=== PATIENT | male | born 1955 | race Caucasian/White ===

== ENCOUNTER 2016-07-29 10:02 | Emergency (ER) | payer BC, OTHER ==
[2016-07-29] MEDS ORDERED: KETOROLAC TROMETHAMINE 60 MG/2 ML VIAL IM ONE ×2 (10:24→10:37)
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
--- OUTSIDE RECORDS SUMMARY | 2016-07-29 10:40 | XMS REPORT | Continuity of Care Document ---
:1955 Author Organization [facility] [place] [address] Care Team Providers Name Role Phone Provider, None Per Patient Primary Care Provider Unavailable Source Comments This disclosure is being made pursuant to the [employer] program and maynot contain all information available regarding this patient.[facility] Active Allergies and Adverse Reactions Not on File Current Medications Be aware that medications may not be up to date as of this document. Alwaysverify current medications with the patient. Not on file Active Problems Not on file Social History Tobacco Use Types Packs/Day Years Used Date Never Assessed Plan of Care Health Maintenance Due Date Last Done Comments Tetanus/Pertussis (1 - Tdap) 02/26/1975 Colonoscopy 02/26/2006 Well Adult Visit 02/26/2006 Influenza Immunization (#1) 2015 Results from Last 3 Months Not on file
--- OUTSIDE RECORDS SUMMARY | 2016-07-29 10:40 | XMS REPORT | Continuity of Care Document ---
:1955 Author Organization [facility] ([facility]) Address [address] [place] [address] Phone [phone] Care Team Providers Name Role Phone Provider, No-Primary Care Primary Care Provider Unavailable Source Comments This disclosure is being made pursuant to the Care Everywhere program, applicable federal and state laws, and may not contain all informaitonavailable regarding this patient.[facility] ([facility]) Active Allergies and Adverse Reactions Not on File Current Medications Not on file Active Problems Not on file Social History Tobacco Use Types Packs/Day Years Used Date Never Assessed Plan of Care Health Maintenance Due Date Last Done Comments HCV Screening 1955 Hepatitis B Vaccine (1 of 3 - Primary Series) 1955 Tdap Vaccine 02/26/1967 Lipid Disorder Screening 02/26/1974 MMR Vaccine 02/26/1974 Td Vaccine 02/26/1974 Colonoscopy 02/26/2006 Prostate Cancer Screening 02/26/2006 Influenza Vaccine: Seasonal (#1) 11/21/2015 Zoster Vaccine 2016 Results from Last 3 Months Not on file
[2016-07-29] MEDS ORDERED: HYDROmorphone HCL 1 MG/ML DISP.SYRIN IM ONE (10:54)
[2016-07-29] MEDS ORDERED: HYDROmorphone HCL 1 MG/ML DISP.SYRIN ONE (10:57)
[2016-07-29 11:23] VITALS: BP 152/82
== END 2016-07-29 11:22 | disposition home or self-care (01) ==
LOC: ER 10:02
DX: S46.811A Strain of other muscles, fascia and tendons at shoulder and upper arm level, right arm, initial encounter (principal); V86.59XA Driver of other special all-terrain or other off-road motor vehicle injured in nontraffic accident, initial encounter; Y92.007 Garden or yard of unspecified non-institutional (private) residence as the place of occurrence of the external cause; Y99.8 Other external cause status

== ENCOUNTER 2020-03-02 13:03 | Inpatient (IN) ==
[2020-03-02 13:47] LABS: Hematocrit 45.2 % (42.0-52.0); Hemoglobin 15.3 gm/dL (13.5-18.0); Mean Cell Volume 88.5 fl (78-100); Mean Corpuscular Hemoglobin 29.9 pg (27-31); Mean Corpuscular Hgb Conc 33.8 g/dl (32-36); Mean Platelet Volume 9.9 fl (8-11.3); Neutrophil # 3.9 K/mm3 (1.3-6.0); Neutrophil % 68.8 % (42-75.0); Platelet Count 207 K/mm3 (150-450); Red Blood Count 5.11 M/mm3 (4.7-6.0); White Blood Count 5.7 K/mm3 (4.0-10.5)
[2020-03-02] MEDS ORDERED: DEXAMETHASONE SODIUM PHOSP/PF 10 MG/ML VIAL IV ONE (13:56)
[2020-03-02] MEDS ORDERED: NORMAL SALINE 1,000 ML IV ONE (13:56)
[2020-03-02 14:09] LABS: Albumin * 3.5 gm/dl (3.4-5.0); Anion Gap 13.8 mmol/L (6.8-13.8); BUN/Creatinine Ratio 13.3 (9.0-21.6); Bilirubin, Total 0.4 mg/dL (0.0-1.1); Ca. Corrected For Albumin 8.9 mg/dL (8.4-10.2); Calcium * 8.8 mg/dL (7.9-10.9); Carbon Dioxide 25.4 mmol/L (24-32.6); Potassium 4.2 mmol/L (3.4-4.6); Total Protein 7.7 gm/dL (6.2-8.2)
--- NOTE | 2020-03-02 15:10 | ERNOTE ---
Date of Service: 03/02/20 Time Seen by Provider: 03/02/20 13:45 Stated Complaint: covid positive sob Presenting Symptoms:: cough, other - SOB Source: patient Exam Limitations: no limitations Immunizations: IMMUNIZATION HX Immunizations Up to Date Yes History of Influenza Vaccine No Hx Pneumococcal Vaccination No Allergies/Adverse Reactions: Allergies bee venom protein (honey bee) Allergy (Verified 03/02/20 13:47) Swelling (Other) Home Medications: HOME MEDICATIONS Dm/P-Ephed/Acetaminoph/Doxylam [Jeni-[place] Plus Cold+Flu Pkt] 1 ea PO BID 03/02/20 [Last Taken 03/02/20 05:30] - History of Present Ilness Narrative: Patient presents to the ED for SOB. He became ill last Saturday. Was tested for COVID on Saturday which was positive. She has been having some pain between his shoulder blades. Feeling SOB that has been increasing. No CP. Fatigued. Here sats noted as low as 85% RA. He denies sleep apnea. Timing: constant, getting worse Severity: severe Frequency/Possible Cause: Reports: other - COVID 19 Modifying Factors - Improves: Reports: rest Modifying Factors - Worsens: Reports: activity Associated Symptoms: Reports: cough, shortness of breath. Denies: chest pain/soreness Prior Treatment: Denies: recently seen Review of Systems - Review of Systems Constitutional: Present: fatigue, malaise EYE: Present: no symptoms reported ENT: Absent: sore throat Respiratory: Present: shortness of breath Cardiology: Absent: chest pain Gastrointestinal/Abdominal: Absent: abdominal pain Genitourinary: Absent: dysuria Neurological: Absent: weakness All Other Systems: All systems neg except as marked Medical History (Last Reviewed 03/02/20 @ 15:08 by Francisco Matias MD) Gout (Acute) Anxiety Onset Date: Unknown Back pain Onset Date: ~07/1999 Carpal tunnel syndrome of right wrist Onset Date: ~04/2001 Foot pain, left Onset Date: ~05/2015 Impaired fasting glucose Onset Date: Unknown Obesity Onset Date: Unknown Tear of meniscus of left knee Onset Date: ~01/1999 Surgical History: Surgical History (Last Reviewed 03/02/20 @ 15:08 by Francisco Maitas MD) H/O colonoscopy Onset Date: ~04/2009 H/O knee surgery H/O nasal polypectomy Onset Date: ~03/2000 History of appendectomy History of carpal tunnel release Onset Date: ~1981 History of cholecystectomy Onset Date: ~04/2002 Previous back surgery Family History: Family History (Last Reviewed 03/02/20 @ 15:08 by Francisco Matias MD) Grandfather Hypertension paternal grandfather Diabetes paternal grandfather Father Diabetes Mother , colon cancer, adenocarcinoma at 54 years of age Cancer Social History: (Last Reviewed 03/02/20 @ 15:08 by Francisco Matias MD) Social History: adopted: No assisted: No Marital status: Marital status comment: engaged household members: significant other current occupational status: employed 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 Highest education level completed: high school graduate Service: No Tobacco: Smoking Status: Former smoker Alcohol: alcohol intake: current alcohol intake frequency: holiday/special occasion Substance Use: substance use type: does not use Dietary Habits: caffeine: Yes Type: carbonated beverages Physical Exam - Physical Exam General Appearance: Present: alert, no apparent distress Head Exam: Present: normal inspection, no evidence of injury Eye Exam: Normal inspection: bilateral, PERRL: bilateral Ears, Nose, Throat: Present: normal ENT inspection Neck: Present: normal inspection Respiratory: Present: no respiratory distress, normal breath sounds, no accessory muscle use, lungs clear, other - diminished bilaterally Cardiovascular/Chest: Present: regular rate, rhythm, normal peripheral pulses Gastrointestinal/Abdominal: Present: normal bowel sounds, nontender, soft Back Exam: Present: normal range of motion Extremity Exam: Present: normal inspection, normal range of motion Neurological Exam: Present: alert, no motor/sensory deficits Skin Exam: Present: normal color, warm/dry Progress - Results and Orders Patient's Lab Results:: I have reviewed the patient's lab results. - Vital Signs Patient's Vital Signs:: I have reviewed the patient's vital signs. Vital Signs: Vital Signs 03/02/20 13:03 03/02/20 13:44 Temperature 37.7 C 37.7 C Pulse Rate 85 82 Respiratory Rate 20 20 Blood Pressure 141/81 141/81 O2 Sat by Pulse Oximetry 90 L 85 L - EKG EKG #1 EKG: NSR EKG read: Interp. by me EKG Comments: NSR rate 92. Non-specific, no STEMI - X-Ray X-Ray #1 X-Ray: chest Interpretation: Interp. by me X-ray Comments: I personally reviewed CXR image as well as official radiology report - Progress/Reassessment Chief Complaint: Upper Respiratory Symptoms Progress Note-Subjective: 03/02/20 15:09 IV started, IV Dexamethasone given and Oxygen started. Patient will require hospitalization. D/W Dr Rodriguez who will admit. Patient understands this. Departure Clinical Impression: Hypoxia, Pneumonia due to COVID-19 virus - Departure Disposition: Still a patient Condition: Fair
--- NOTE | 2020-03-02 17:08 | HP ---
Chief Complaint - Chief Complaint Date of Service: 03/02/20 Time of Service: 16:35 Chief Complaint: Shortness of breath History of Present Illness: 65-year-old male with a past medical history of smoking, morbid obesity, anxiety, impaired fasting glucose, gout. He states he quit smoking about 20 years ago. He has a [id number] history of smoking. 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 He was seen at the respiratory clinic and had a Covid test that came back positive. He states for the past few days he has been having increased shortness of breath and therefore presented to the ER today. In the emergency room he was found to be hypoxic with an oxygen level of 85% on room air. His oxygen level improved into the low to mid 90s with 2 L of oxygen via nasal can nula. Chest x-ray bilateral lung infiltrates which are consistent with viral pneumonia. He is being admitted for further management and evaluation of Covid pneumonia. Medical History (Last Reviewed 03/02/20 @ 15:08 by Francisco Matias MD) Gout (Acute) Anxiety Onset Date: Unknown Back pain Onset Date: ~07/1999 Carpal tunnel syndrome of right wrist Onset Date: ~04/2001 Foot pain, left Onset Date: ~05/2015 Impaired fasting glucose Onset Date: Unknown Obesity Onset Date: Unknown Tear of meniscus of left knee Onset Date: ~01/1999 Surgical History: Surgical History (Last Reviewed 03/02/20 @ 15:08 by Francisco Matias MD) H/O colonoscopy Onset Date: ~04/2009 H/O knee surgery H/O nasal polypectomy Onset Date: ~03/2000 History of appendectomy History of carpal tunnel release Onset Date: ~1981 History of cholecystectomy Onset Date: ~04/2002 Previous back surgery Family History: Family History (Last Reviewed 03/02/20 @ 15:08 by Francisco Matias MD) Grandfather Hypertension paternal grandfather Diabetes paternal grandfather Father Diabetes Mother , colon cancer, adenocarcinoma at 54 years of age Cancer Social History: (Last Reviewed 03/02/20 @ 15:08 by Francisco Matias MD) Social History: adopted: No long term: No Marital status: Marital status comment: engaged household members: significant other current occupational status: employed 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 Absent: Abdominal Pain Misc: All systems neg except as marked Immunizations: IMMUNIZATION HX Immunizations Up to Date Yes History of Influenza Vaccine No Hx Pneumococcal Vaccination No Allergies/Adverse Reactions: Allergies Allergy/AdvReac Type Severity Reaction Status Date / Time bee venom protein (honey bee) Allergy Swelling Verified 03/02/20 13:47 (Other) Home Medications: HOME MEDICATIONS Dm/P-Ephed/Acetaminoph/Doxylam [Jeni-[place] Plus Cold+Flu Pkt] 1 ea PO BID 03/02/20 [Last Taken 03/02/20 05:30] Exam - Exam Vital Signs: Vital Signs - Last Taken Temp 37.3 C 03/02/20 16:02 Pulse 78 03/02/20 16:02 Resp 17 03/02/20 16:02 BP 144/90 H 03/02/20 16:02 Pulse Ox 96 03/02/20 16:02 Constitutional: Present: Alert, Cooperative, Well developed, Well nourished, No distress, Morbidly obese ENT Exam: Present: hearing grossly normal Eye Exam: bilateral eye: normal inspection, EOMI Neck: Present: non-tender, supple. Absent: lymphadenopathy (R), lymphadenopathy (L) Back Exam: Present: normal inspection, no CVA tenderness, no vertebral tenderness Respiratory: Present: no respiratory distress, no accessory muscle use, decreased breath sounds - Throughout all lung alcaraz, No wheezing. Absent: cr ackles, rhonchi Cardiovascular/Chest: Present: normal peripheral pulses, regular rate, rhythm, no edema, no murmur Peripheral Pulses: dorsalis-pedis (R): 2+, dorsalis-pedis (L): 2+ Abdomen: Present: Normal bowel sounds, soft, nontender Extremity: Present: no pedal edema Skin Exam: Present: normal color, warm/dry Neurologic: Present: alert, normal mood/affect Appearance: Present: appropriate appearance, appropriate insight Eye contact: Present: cooperative Thoughts: Present: normal thought pattern, normal mood /affect Diagnostic Studies: Abnormal Lab Results 03/02/20 03/02/20 03/02/20 Range/Units 13:30 13:30 13:30 Lymphocytes # 1.18 L (1.5-3.5) k/mm3 D-Dimer 0.59 H (0.19-0.49) ug/mL Random Glucose 143 H (70-110) mg/dL Laboratory Results WBC 5.7 K/mm3 (4.0-10.5) 03/02/20 13:30 RBC 5.11 M/mm3 (4.7-6.0) 03/02/20 13:30 Hgb 15.3 gm/dL (13.5-18.0) 03/02/20 13:30 Hct 45.2 % (42.0-52.0) 03/02/20 13:30 MCV 88.5 fl (78-100) 03/02/20 13:30 MCH 29.9 pg (27-31) 03/02/20 13:30 MCHC 33.8 g/dl (32-36) 03/02/20 13:30 RDW 12.0 % (11.5-14.0) 03/02/20 13:30 Plt Count 207 K/mm3 (150-450) 03/02/20 13:30 MPV 9.9 fl (8-11.3) 03/02/20 13:30 Immature Gran % (Auto) 0.40 % (0.001-0.429) 03/02/20 13:30 Immature Gran # (Auto) 0.02 K/mm3 (0.000-0.0310) 03/02/20 13:30 Neutrophils % 68.8 % (42-75.0) 03/02/20 13:30 Lymphocytes % 20.7 % (20-51) 03/02/20 13:30 Monocytes % 8.3 % (0.0-9) 03/02/20 13:30 Eosinophils % 1.4 % (0.0-3.0) 03/02/20 13:30 Basophils % 0.4 % (0.0-1.0) 03/02/20 13:30 Nucleated RBC % 0.0 k/mm3 (0-1) 03/02/20 13:30 Neutrophils # 3.9 K/mm3 (1.3-6.0) 03/02/20 13:30 Lymphocytes # 1.18 k/mm3 (1.5-3.5) L 03/02/20 13:30 Monocytes # 0.5 k/mm3 (0.0-1.0) 03/02/20 13:30 Eosinophils # 0.1 k/mm3 (0.0-0.7) 03/02/20 13:30 Absolute Basophils 0.0 k/mm3 (0.0-0.1) 03/02/20 13:30 D-Dimer 0.59 ug/mL (0.19-0.49) H 03/02/20 13:30 Sodium 135 mmol/L (132-142) 03/02/20 13:30 Plasma Sodium 136 mmol/L (130-142) 03/02/20 13:30 Potassium 4.2 mmol/L (3.4-4.6) 03/02/20 13:30 Chloride 100 mmol/L (97-106) 03/02/20 13:30 Carbon Dioxide 25.4 mmol/L (24-32.6) 03/02/20 13:30 Anion Gap 13.8 mmol/L (6.8-13.8) 03/02/20 13:30 BUN 16 mg/dL (6-23) 03/02/20 13:30 Creatinine 1.20 mg/dL (0.4-1.4) 03/02/20 13:30 Est GFR (Non-Af Amer) 65 mL/min (60-130) 03/02/20 13:30 BUN/Creatinine Ratio 13.3 (9.0-21.6) 03/02/20 13:30 Random Glucose 143 mg/dL (70-110) H 03/02/20 13:30 Calcium 8.8 mg/dL (7.9-10.9) 03/02/20 13:30 Calcium Adj for Albumin 8.9 mg/dL (8.4-10.2) 03/02/20 13:30 Total Bilirubin 0.4 mg/dL (0.0-1.1) 03/02/20 13:30 AST 38 U/L (0-48) 11/11/20 13:30 ALT 45 U/L (19-67) 03/02/20 13:30 Alkaline Phosphatase 88 U/L (50-170) 03/02/20 13:30 Troponin I Less than 0.017 ng/mL (0.00-0.10) 03/02/20 13:30 B-Natriuretic Peptide 13 pg/mL (5-175) 03/02/20 13:30 Total Protein 7.7 gm/dL (6.2-8.2) 03/02/20 13:30 Albumin 3.5 gm/dl (3.4-5.0) 03/02/20 13:30 Procalcitonin 0.05 ng/mL (0.05-0.50) 03/02/20 13:30 Assessment/Plan - Narrative Narrative: 65-year-old male with a past medical history of smoking, morbid obesity, anxiety, impaired fasting glucose, gout. He states he quit smoking about 20 years ago. He has a [id number] history of smoking. 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 He was seen at the respiratory clinic and had a Covid test that came back positive. He states for the past few days he has been having increased short ness of breath and therefore presented to the ER today. In the emergency room he was found to be hypoxic with an oxygen level of 85% on room air. His oxygen level improved into the low to mid 90s with 2 L of oxygen via nasal cannula. Chest x-ray bilateral lung infiltrates which are consistent with viral pneumonia. He is being admitted for further management and evaluation of Covid pneumonia. Plan #1 continue with oxygen supplementation as needed to keep O2 level greater than 90% #2 start dexamethasone 6 mg daily #3 CBC and CMP in the morning #4 regular diet - Assessment/Plan (1) Pneumonia due to COVID-19 virus Problem: Acute (2) Hypoxia Problem: Acute
[2020-03-02] MEDS ORDERED: REMDESIVIR (EUA) 200 MG in NORMAL SALINE 210 ML IV ONE (21:19)
[2020-03-03 06:56] LABS: Hematocrit 43.2 % (42.0-52.0); Hemoglobin 14.1 gm/dL (13.5-18.0); Mean Cell Volume 90.8 fl (78-100); Mean Corpuscular Hemoglobin 29.6 pg (27-31); Mean Corpuscular Hgb Conc 32.6 g/dl (32-36); Platelet Count 203 K/mm3 (150-450); Red Blood Count 4.76 M/mm3 (4.7-6.0); White Blood Count 4.5 K/mm3 (4.0-10.5)
[2020-03-03 06:59] LABS: Total Cells Counted 100
[2020-03-03 07:28] LABS: Albumin * 2.9 gm/dl (3.4-5.0); Anion Gap 10.9 mmol/L (6.8-13.8); BUN/Creatinine Ratio 14.9 (9.0-21.6); Bilirubin, Total 0.3 mg/dL (0.0-1.1); Ca. Corrected For Albumin 9.7 mg/dL (8.4-10.2); Calcium * 9.1 mg/dL (7.9-10.9); Carbon Dioxide 27.3 mmol/L (24-32.6); Potassium 4.2 mmol/L (3.4-4.6); Total Protein 7.7 gm/dL (6.2-8.2)
[2020-03-03 07:55] LABS: Atypical (Reactive) Lymph 7 % (0-2); Band 18 % (0-2.0); Lymphocyte 10 % (20-51); Monocyte 6 % (0-9); Neutrophil 59 % (42-75); Neutrophil # 2.7 K/mm3 (1.3-6.0)
[2020-03-03 07:56] LABS: Platelet Estimate Normal (NORMAL); RBC Morphology Normal (NORMAL)
[2020-03-03] MEDS: DEXAMETHASONE 2 MG, DEXAMETHASONE 4 MG PO SCH ×2 (08:56)
[2020-03-03] MEDS ORDERED: DEXAMETHASONE 4 MG TABLET PO SCH (09:00)
[2020-03-03] MEDS: ENOXAPARIN SODIUM 40 MG/0.4 ML SYRG SC SCH (13:41)
[2020-03-03] MEDS ORDERED: PHENOL 180 SPRAY BTL MM PRN (14:50)
--- NOTE | 2020-03-03 14:58 | PN ---
Subjective - Date and Time Seen Date: 03/03/20 Time: 11:45 Subjective Narrative: He continues to have a mildly productive cough and states he does not feel well. He has a sore throat as well. Objective - Review of Systems Generalized/Overall Review: Denies: Fever Respiratory: Reports: Cough, Shortness of Breath Cardiac: Reports: Chest Pain - With coughing Abdominal: Denies: Abdominal Pain Misc: All systems neg except as marked - Vitals Vitals: Last Vital Signs Temp 35.4 C L 03/03/20 11:00 Pulse 63 03/03/20 11:00 Resp 18 03/03/20 11:00 BP 123/69 03/03/20 11:00 Pulse Ox 96 03/03/20 11:00 - Abnormal Lab Findings Abnormal Lab Findings: Abnormal Lab Results 03/03/20 03/03/20 Range/Units 06:30 06:30 Band Neuts % (Manual) 18 H (0-2.0) % Lymphocytes % (Manual) 10 L (20-51) % Lymphocytes # (Manual) 0.5 L (1.5-3.5) k/mm3 Atypic/Reactive Lymphs 7 H (0-2) % Random Glucose 218 H D (70-110) mg/dL Albumin 2.9 L (3.4-5.0) gm/dl - Exam Constitutional: Present: Alert, Cooperative, Well developed, Well nourished, No distress, Morbidly obese ENT Exam: Present: hearing grossly normal Neck: Present: supple. Absent: lymphadenopathy (R), lymphadenopathy (L) Respiratory: Present: lungs clear, no respiratory distress, no accessory muscle use, decreased breath sounds - Throughout all lung alcaraz, No wheezing. Absent: crackles, rhonchi Cardiovascular/Chest: Present: regular rate, rhythm, no edema, no murmur Abdomen: Present: Normal bowel sounds, soft, nontender, obese Extremity: Present: no pedal edema Skin Exam: Present: normal color, warm/dry Neurologic: Present: alert, normal mood/affect Appearance: Present: appropriate appearance Eye contact: Present: cooperative Thoughts: Present: normal thought pattern, normal mood /affect Assessment/Plan Plan Narrative: 65-year-old male with a past medical history of smoking, morbid obesity, anxiety, impaired fasting glucose, gout. He states he quit smoking about 20 years ago. He has a [id number] history of smoking. 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 He was seen at the respiratory clinic and had a Covid test that came back positive. He states for the past few days he has been having increased shortness of breath and therefore presented to the ER today. In the emergency room he was found to be hypoxic with an oxygen level of 85% on room air. His oxygen level improved into the low to mid 90s with 2 L of oxygen via nasal cannula. Chest x-ray bilateral lung infiltrates which are consistent with viral pneumonia. He is being admitted for further management and evaluation of Covid pneumonia. Patient is still requiring oxygen supplementation, he continues to have a mildly productive cough and malaise. He is afebrile. Plan #1 continue with oxygen supplementation as needed to keep O2 level greater than 90% #2 start dexamethasone 6 mg daily #3 CBC and CMP in the morning #4 regular diet #5 continue with remdesivir day 2 - Problems/Diagnosis (1) Pneumonia due to COVID-19 virus Problem: Acute (2) Hypoxia Problem: Acute
[2020-03-03] MEDS ORDERED: REMDESIVIR IV SCH (22:00)
[2020-03-03] MEDS ORDERED: NORMAL SALINE IV SCH (22:00)
[2020-03-04 06:51] LABS: Hematocrit 42.7 % (42.0-52.0); Hemoglobin 14.1 gm/dL (13.5-18.0); Mean Cell Volume 90.5 fl (78-100); Mean Corpuscular Hemoglobin 29.9 pg (27-31); Mean Platelet Volume 10.4 fl (8-11.3); Neutrophil # 7.9 K/mm3 (1.3-6.0); Neutrophil % 77.9 % (42-75.0); Platelet Count 243 K/mm3 (150-450); Red Blood Count 4.72 M/mm3 (4.7-6.0); Red Cell Distribution Width 11.9 % (11.5-14.0); White Blood Count 10.2 K/mm3 (4.0-10.5)
[2020-03-04 07:07] LABS: Albumin * 2.8 gm/dl (3.4-5.0); BUN/Creatinine Ratio 18.6 (9.0-21.6); Bilirubin, Total 0.3 mg/dL (0.0-1.1); Ca. Corrected For Albumin 9.6 mg/dL (8.4-10.2); Carbon Dioxide 29.4 mmol/L (24-32.6); Potassium 4.4 mmol/L (3.4-4.6); Total Protein 7.4 gm/dL (6.2-8.2)
[2020-03-04] MEDS: DEXAMETHASONE 2 MG, DEXAMETHASONE 4 MG PO SCH ×2 (08:52)
--- NOTE | 2020-03-04 12:20 | DS ---
(1) Pneumonia due to COVID-19 virus Problem: Acute (2) Hypoxia Problem: Acute Hospital Course: 65-year-old male with a past medical history of smoking, morbid obesity, anxiety, impaired fasting glucose, gout. He states he quit smoking about 20 years ago. He has a [id number] history of smoking. 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 He was seen at the respiratory clinic and had a Covid test that came back positi ve. He states for the past few days he has been having increased shortness of breath and therefore presented to the ER today. In the emergency room he was found to be hypoxic with an oxygen level of 85% on room air. His oxygen level improved into the low to mid 90s with 2 L of oxygen via nasal cannula. Chest x- ray bilateral lung infiltrates which are consistent with viral pneumonia. He is being admitted for further management and evaluation of Covid pneumonia. Patient is still requiring oxygen supplementation, he continues to have a mildly productive cough and malaise. He is remains afebrile. He has been without oxygen since this morning and maintaining O2 sat of 94% even with ambulation. Stable to be discharged home today. Procedures Performed: none Results and Findings: Pending Mircobiology Results 03/02/20 14:11 Blood Blood Culture - Preliminary NO GROWTH 24 HOURS 03/02/20 13:30 Blood Blood Culture - Preliminary NO GROWTH 24 HOURS Lab Pending Results 03/02/20 13:30: WBC 5.7, RBC 5.11, Hgb 15.3, Hct 45.2, MCV 88.5, MCH 29.9, MCHC 33.8, RDW 12.0, Plt Count 207, MPV 9.9, Immature Gran % (Auto) 0.40, Immature Gran # (Auto) 0.02, Neutrophils % 68.8, Lymphocytes % 20.7, Monocytes % 8.3, Eosinophils % 1.4, Basophils % 0.4, Nucleated RBC % 0.0, Neutrophils # 3.9, Lymphocytes # 1.18 L, Monocytes # 0.5, Eosinophils # 0.1, Absolute Basophils 0.0 03/02/20 13:30: Sodium 135, Plasma Sodium 136, Potassium 4.2, Chloride 100, Carbon Dioxide 25.4, Anion Gap 13.8, BUN 16, Creatinine 1.20, Est GFR (Non-Af Amer) 65, BUN/Creatinine Ratio 13.3, Random Glucose 143 H, Calcium 8.8, Calcium Adj for Albumin 8.9, Total Bilirubin 0.4, AST 38, ALT 45, Alkaline Phosphatase 88, B-Natriuretic Peptide 13, Total Protein 7.7, Albumin 3.5 03/02/20 13:30: Procalcitonin 0.05 03/02/20 13:30: Troponin I Less than 0.017 03/02/20 13:30: D-Dimer 0.59 H 03/03/20 06:30: WBC 4.5 D, RBC 4.76, Hgb 14.1, Hct 43.2, MCV 90.8, MCH 29.6, MCHC 32.6, RDW 12.0, Plt Count 203, MPV 10.0, Neutrophils % (Manual) 59, Band Neuts % (Manual) 18 H, Lymphocytes % (Manual) 10 L, Monocytes % (Manual) 6, Neutrophils # (Manual) 2.7, Lymphocytes # (Manual) 0.5 L, Monocytes # (Manual) 0.3, Atypic/Reactive Lymphs 7 H, Platelet Estimate Normal, RBC Morphology Normal 03/03/20 06:30: Sodium 136, Plasma Sodium 138, Potassium 4.2, Chloride 102, Carbon Dioxide 27.3, Anion Gap 10.9, BUN 18, Creatinine 1.21, Est GFR (Non-Af Amer) 64, BUN/Creatinine Ratio 14.9, Random Glucose 218 H D, Calcium 9.1, Calci um Adj for Albumin 9.7, Total Bilirubin 0.3, AST 25, ALT 34, Alkaline Phosphatase 76, Total Protein 7.7, Albumin 2.9 L 03/04/20 06:40: Sodium 138, Plasma Sodium 139, Potassium 4.4, Chloride 104, Carbon Dioxide 29.4, Anion Gap 9.0, BUN 22, Creatinine 1.18, Est GFR (Non-Af Amer) 66, BUN/Creatinine Ratio 18.6, Random Glucose 191 H, Calcium 9.0, Calcium Adj for Albumin 9.6, Total Bilirubin 0.3, AST 19, ALT 30, Alkaline Phosphatase 71, Total Protein 7.4, Albumin 2.8 L 03/04/20 06:40: WBC 10.2 D, RBC 4.72, Hgb 14.1, Hct 42.7, MCV 90.5, MCH 29.9, MCHC 33.0, RDW 11.9, Plt Count 243, MPV 10.4, Immature Gran % (Auto) 0.40, Immature Gran # (Auto) 0.04 H, Neutrophils % 77.9 H, Lymphocytes % 15.1 L, Monocytes % 6.4, Eosinophils % 0.1, Basophils % 0.1, Nucleated RBC % 0.0, Neutrophils # 7.9 H, Lymphocytes # 1.54, Monocytes # 0.7, Eosinophils # 0.0, Absolute Basophils 0.0 Discharge Location: Home Disposition: Home self-care Condition: Fair Discharge Activity: Activity as tolerated Discharge Diet: General/regular food Referrals: Lilian Angulo MD [Primary Care Provider] - Additional Patient Instructions (free text): Continue to stay home from work and self isolate until 10 days after your diagnosis with COVID-19. Recommend that you return to work only if you are not symptomatic. If you develop a fever you need to be fever free for 24 hours without any fever medication prior to returning to work. Complete Home Medications List: Complete Home Medication List: Dm/P-Ephed/Acetaminoph/Doxylam [Jeni-[place] Plus Cold+Flu Pkt] 1 ea PO BID 03/02/20
[2020-03-04] MEDS ORDERED: FLU VACC QS2020-21(6MOS UP)/PF 60 MCG/0.5 ML SYRINGE IM ONE (12:36)
[2020-03-04] MEDS: ENOXAPARIN SODIUM 40 MG/0.4 ML SYRG SC SCH (13:14)
[2020-03-04 14:43] VITALS: BP 140/83
== END 2020-03-04 14:05 | disposition home or self-care (01) | DRG 177 ==
LOC: ER 13:03 → SCU 13:03
PROVIDERS: ADMIT Internal Medicine; ATTEND Internal Medicine
DX: F41.9 Anxiety disorder, unspecified; Z68.41 Body mass index [BMI] 40.0-44.9, adult; E66.01 Morbid (severe) obesity due to excess calories; Z87.891 Personal history of nicotine dependence; U07.1 COVID-19; R09.02 Hypoxemia; J12.89 Other viral pneumonia